=== PATIENT | male | born 1955 | race Caucasian/White ===

== ENCOUNTER 2017-08-03 12:58 | Emergency (ER) | payer OTHER ==
[~2017-08-03] VITALS: Ht 177.8 cm; Wt 95.0 kg
[~2017-08-03 12:58] MED LIST: BACTRIM,SEPT1 TABLET PO; CLINDAMYCIN HC300 MG PO; ENDOCET 5-3251 EACH PO; KEFLEX500 MG PO; LEVAQUIN750 MG PO; LOPRESSOR25 MG PO; NAPROSYN500 MG PO; NOHOMEMEDS; PERCOCET 5/31 TABLET PO; ULTRAM50 MG PO
[2017-08-03 16:10] VITALS: BP 163/99
== END 2017-08-03 16:14 | disposition home or self-care (01) ==
LOC: EME 12:58
DX: S81.811A Laceration without foreign body, right lower leg, initial encounter (principal); W01.111A Fall on same level from slipping, tripping and stumbling with subsequent striking against power tool or machine, initial encounter; Y92.009 Unspecified place in unspecified non-institutional (private) residence as the place of occurrence of the external cause; I10 Essential (primary) hypertension; F41.9 Anxiety disorder, unspecified; F32.9 Major depressive disorder, single episode, unspecified; F17.200 Nicotine dependence, unspecified, uncomplicated; F10.10 Alcohol abuse, uncomplicated; Z23 Encounter for immunization
CPT/HCPCS: 99281; 99284

== ENCOUNTER 2017-08-13 14:00 | Emergency (ER) | payer OTHER ==
[~2017-08-13] VITALS: Ht 177.8 cm; Wt 91.9 kg
[2017-08-13 14:23] VITALS: BP 132/78
== END 2017-08-13 16:34 | disposition home or self-care (01) ==
LOC: EME 14:00 → RME 14:00
DX: S71.111D Laceration without foreign body, right thigh, subsequent encounter (principal); W45.8XXD Other foreign body or object entering through skin, subsequent encounter; Z48.02 Encounter for removal of sutures; F17.200 Nicotine dependence, unspecified, uncomplicated
CPT/HCPCS: 99281; 99284